=== PATIENT | male | born 1970 | race Caucasian/White ===

== ENCOUNTER 2023-07-29 10:41 | Emergency (ER) | payer MEDICAID ==
[2023-07-29] MEDS: Aspirin 81 MG Tab.Chew PO ONE (11:36)
[2023-07-29 11:39] LABS: BASOPHILS ABSOLUTE AUTO 0.03 K/uL (0.00-0.10); BASOPHILS PERCENT AUTO 0.5 % (0.1-1.3); EOSINOPHILS ABSOLUTE AUTO 0.09 K/uL (0.00-0.40); EOSINOPHILS PERCENT AUTO 1.4 % (0.0-5.4); HEMATOCRIT 44.9 % (38.4-49.7); HEMOGLOBIN 15.9 g/dL (12.9-16.9); IMMATURE GRAN PERCENT AUTO 0.3 % (0.0-0.7); LYMPHOCYTES ABSOLUTE AUTO 1.88 K/uL (0.8-3.3); LYMPHOCYTES PERCENT AUTO 29.3 % (11.4-47.7); MEAN CORPUSCULAR HEMOGLOBIN 31.4 pg (31.6-35.5); MEAN CORPUSCULAR HGB CONC 35.4 g/dL (31.6-35.5); MEAN CORPUSCULAR VOLUME 88.7 fL (81.4-99.0); MONOCYTES PERCENT AUTO 15.6 % (3.3-12.6); NEUTROPHILS PERCENT AUTO 52.9 % (40.0-78.1); PLATELET COUNT,PLT 250 K/uL (130-375); RED BLOOD CELL COUNT 5.06 M/uL (4.14-5.76); WHITE BLOOD CELL COUNT,WBC 6.4 K/uL (3.2-11.0)
[2023-07-29 11:41] LABS: IMMATURE GRAN ABSOLUTE AUTO 0.02 K/uL (0.00-0.23)
[2023-07-29 12:09] LABS: ALANINE AMINOTRANSFERASE,ALT 25 U/L (12-78); ALBUMIN 3.7 g/dL (3.4-5.0); ALKALINE PHOSPHATASE 73 U/L (46-116); ANION GAP 12.5 mmol/L (5.0-14.0); ASPARTATE AMNIOTRANSFERASE,AST 16 U/L (15-37); BILIRUBIN TOTAL 1.2 mg/dL (0.2-1.0); BLOOD UREA NITROGEN,BUN 14 mg/dL (7-18); CALCIUM 9.4 mg/dL (8.5-10.1); CARBON DIOXIDE,CO2 28 mmol/L (21-32); CHLORIDE,CL 103 mmol/L (100-108); CREATININE 1.1 mg/dL (0.8-1.3); EST CRCL DRUG DOSING (CG) 93.16 mL/min; ESTIMATED GFR 79 mL/min (>60); GLUCOSE RANDOM 115 mg/dL (74-106); POTASSIUM,K 4.5 mmol/L (3.6-5.2); PROTEIN TOTAL,TP 7.5 g/dL (6.4-8.2); SODIUM,NA 139 mmol/L (140-148); TROPONIN I HIGH SENSITIVITY 9.1 pg/mL (<=60.3); TSH ULTRASENSITIVE 0.859 uIU/mL (0.358-3.740)
[2023-07-29 12:17] VITALS: BP 146/94; PULSE 85
== END 2023-07-29 12:42 | disposition home or self-care (01) ==
LOC: MERGE 10:41 → JP.ED 10:41
DX: R07.89 Other chest pain (principal); I10 Essential (primary) hypertension; E66.9 Obesity, unspecified; Z88.0 Allergy status to penicillin; Z68.29 Body mass index [BMI] 29.0-29.9, adult; Z88.5 Allergy status to narcotic agent; Z88.1 Allergy status to other antibiotic agents; Z79.899 Other long term (current) drug therapy
CPT/HCPCS: 36415; 71046; 80053; 84443; 84484; 85025; 85379; 93005; 99285; A9270

== ENCOUNTER 2023-12-04 13:10 | Emergency (ER) | payer MEDICAID ==
[2023-12-04 13:55] LABS: BASOPHILS ABSOLUTE AUTO 0.03 K/uL (0.00-0.10); BASOPHILS PERCENT AUTO 0.4 % (0.1-1.3); EOSINOPHILS ABSOLUTE AUTO 0.03 K/uL (0.00-0.40); EOSINOPHILS PERCENT AUTO 0.4 % (0.0-5.4); HEMATOCRIT 45.7 % (38.4-49.7); HEMOGLOBIN 16.5 g/dL (12.9-16.9); IMMATURE GRAN ABSOLUTE AUTO 0.04 K/uL (0.00-0.23); IMMATURE GRAN PERCENT AUTO 0.5 % (0.0-0.7); LYMPHOCYTES ABSOLUTE AUTO 1.73 K/uL (0.8-3.3); LYMPHOCYTES PERCENT AUTO 21.8 % (11.4-47.7); MEAN CORPUSCULAR HEMOGLOBIN 31.6 pg (31.6-35.5); MEAN CORPUSCULAR HGB CONC 36.1 g/dL (31.6-35.5); MEAN CORPUSCULAR VOLUME 87.5 fL (81.4-99.0); MONOCYTES ABSOLUTE AUTO 0.89 K/uL (0.20-0.90); MONOCYTES PERCENT AUTO 11.2 % (3.3-12.6); NEUTROPHILS ABSOLUTE AUTO 5.22 K/uL (1.0-7.6); NEUTROPHILS PERCENT AUTO 65.7 % (40.0-78.1); PLATELET COUNT,PLT 268 K/uL (130-375); RED BLOOD CELL COUNT 5.22 M/uL (4.14-5.76); WHITE BLOOD CELL COUNT,WBC 7.9 K/uL (3.2-11.0)
[2023-12-04] MEDS: Ondansetron 4 MG/2 ML SDV IVPUSH ONE (13:56)
[2023-12-04] MEDS: HYDROmorphone 1 MG/ML Syringe IVPUSH ONE (13:56)
[2023-12-04] MEDS: Sodium Chloride 0.9% 1,000 ML IV SCH ×2 (14:17→16:14)
[2023-12-04] MEDS: Sodium Chloride 0.9% 10 ML Syringe FLUSH PRN ×2 (14:17→15:38)
[2023-12-04 14:28] LABS: A/G RATIO 1.1 (1.2-2.2); ALANINE AMINOTRANSFERASE,ALT 33 U/L (12-78); ALBUMIN 4.1 g/dL (3.4-5.0); ALKALINE PHOSPHATASE 72 U/L (46-116); AMYLASE 32 U/L (25-115); ASPARTATE AMNIOTRANSFERASE,AST 19 U/L (15-37); BILIRUBIN TOTAL 1.6 mg/dL (0.2-1.0); BLOOD UREA NITROGEN,BUN 16 mg/dL (7-18); CALCIUM 9.8 mg/dL (8.5-10.1); CARBON DIOXIDE,CO2 27 mmol/L (21-32); CHLORIDE,CL 100 mmol/L (100-108); CREATININE 1.4 mg/dL (0.8-1.3); EST CRCL DRUG DOSING (CG) 73.19 mL/min; ESTIMATED GFR 59 mL/min (>60); GLUCOSE RANDOM 126 mg/dL (74-106); POTASSIUM,K 3.7 mmol/L (3.6-5.2); PROTEIN TOTAL,TP 7.8 g/dL (6.4-8.2); SODIUM,NA 137 mmol/L (140-148)
[2023-12-04 14:30] LABS: ANION GAP 13.7 mmol/L (5.0-14.0)
[2023-12-04] MEDS: Iopamidol 612 MG/ML 100 ML Bottle IV SCH (15:38)
[2023-12-04] MEDS: Sodium Chloride 0.9% 100 ML IV SCH (15:38)
[2023-12-04 16:08] LABS: APPEARANCE,URINE CLEAR (CLEAR); BILIRUBIN,URINE NEGATIVE (NEGATIVE); COLOR,URINE YELLOW (YELLOW); GLUCOSE,URINE NEGATIVE (NEGATIVE); KETONES,URINE NEGATIVE (NEGATIVE); LEUKOCYTE ESTERASE,URINE NEGATIVE (NEGATIVE); NITRITE,URINE NEGATIVE (NEGATIVE); OCCULT BLOOD,URINE NEGATIVE (NEGATIVE); PH,URINE 6.5 (5.0-8.0); PROTEIN,URINE NEGATIVE (NEGATIVE); UROBILINOGEN,URINE 0.2 EU/dL (0.2-1.0)
[2023-12-04 16:20] LABS: AMORPHOUS SEDIMENT,URINE NOT SEEN; BACTERIA,URINE RARE; EPITHELIAL CELLS,URINE RARE; MUCUS,URINE RARE; RBC,URINE NOT SEEN (0-5); WBC,URINE NOT SEEN (0-5)
[2023-12-04] MEDS: HYDROmorphone 0.5 MG/0.5 ML Syringe IVPUSH ONE (16:40)
[2023-12-04] MEDS: Ketorolac 30 MG/ML SDV IVPUSH ONE (16:43)
[2023-12-04] MEDS: Baclofen 10 MG Tab PO ONE (17:00)
[2023-12-04 17:01] VITALS: BP 141/100; PULSE 70
== END 2023-12-04 17:27 | disposition home or self-care (01) ==
LOC: JP.ED 13:10
DX: M54.50 Low back pain, unspecified (principal); I10 Essential (primary) hypertension; E66.9 Obesity, unspecified; Z79.899 Other long term (current) drug therapy; Z88.0 Allergy status to penicillin; Z88.1 Allergy status to other antibiotic agents; Z88.5 Allergy status to narcotic agent; Z88.6 Allergy status to analgesic agent; Z68.29 Body mass index [BMI] 29.0-29.9, adult
CPT/HCPCS: 36415; 74177; 80053; 81001; 82150; 83690; 85025; 86140; 96361; 96374; 96375; 99283; 99284; A9270; J1170; J1885; J2405; J3490; J7030; Q9967

== ENCOUNTER 2024-04-26 06:10 | Emergency (ER) | payer MEDICAID ==
[2024-04-26 06:32] LABS: APPEARANCE,URINE CLOUDY (CLEAR); BILIRUBIN,URINE NEGATIVE (NEGATIVE); COLOR,URINE YELLOW (YELLOW); GLUCOSE,URINE NEGATIVE (NEGATIVE); KETONES,URINE NEGATIVE (NEGATIVE); LEUKOCYTE ESTERASE,URINE NEGATIVE (NEGATIVE); NITRITE,URINE NEGATIVE (NEGATIVE); OCCULT BLOOD,URINE LARGE (NEGATIVE); PROTEIN,URINE 30 mg/dL (NEGATIVE); UROBILINOGEN,URINE 0.2 EU/dL (0.2-1.0)
[2024-04-26 06:33] VITALS: BP 147/98; PULSE 71
[2024-04-26 06:44] LABS: AMORPHOUS SEDIMENT,URINE MANY; BACTERIA,URINE MODERATE; EPITHELIAL CELLS,URINE NOT SEEN; MUCUS,URINE NOT SEEN; RBC,URINE PACKED (0-5); WBC,URINE 0-5 (0-5)
== END 2024-04-26 07:11 | disposition home or self-care (01) ==
LOC: JP.ED 06:10
DX: R33.9 Retention of urine, unspecified (principal); I10 Essential (primary) hypertension; J45.909 Unspecified asthma, uncomplicated; E66.9 Obesity, unspecified; Z79.899 Other long term (current) drug therapy; Z88.0 Allergy status to penicillin; Z88.5 Allergy status to narcotic agent; Z88.1 Allergy status to other antibiotic agents; Z90.79 Acquired absence of other genital organ(s)
CPT/HCPCS: 51702; 81001; 99284